=== PATIENT | female | born 1965 | race Caucasian/White ===

== ENCOUNTER → 2022-11-19 | Day surgery (SDC) | payer BC, MEDICAID ==
[~2022-11-19] MED LIST: Lactated Ringers 1,000 ML IV SCH; Lidocaine 1% 30 ML SDV ONE; Midazolam 1 MG/ML 2 ML SDV ONE; Propofol 200 MG/20 ML SDV ONE; fentaNYL 50 MCG/ML SDV ONE
[2022-11-19 12:10] VITALS: BP 118/81; PULSE 88
== END ==
LOC: CC.SDS 09:39
PROVIDERS: ATTEND Family Medicine
DX: K57.30 Diverticulosis of large intestine without perforation or abscess without bleeding (principal); K31.89 Other diseases of stomach and duodenum; R19.4 Change in bowel habit; E03.9 Hypothyroidism, unspecified; G47.00 Insomnia, unspecified; M19.90 Unspecified osteoarthritis, unspecified site; R53.1 Weakness; R41.840 Attention and concentration deficit; R53.83 Other fatigue; Z79.890 Hormone replacement therapy; Z98.890 Other specified postprocedural states; Z87.891 Personal history of nicotine dependence
CPT/HCPCS: 00813; 87081; J2250; J2704; J3010; J3490; J7120